=== PATIENT | female | born 1970 | race Caucasian/White ===

== ENCOUNTER 2016-11-30 11:24 | Emergency (ER) | payer MEDICAID, OTHER ==
[~2016-11-30] VITALS: Ht 157.5 cm; Wt 90.0 kg
[2016-11-30 11:35] VITALS: Ht 157.5 cm; Wt 90.0 kg
[2016-11-30 12:25] LABS: URINE BLOOD (Dip) POC 2+ (NEGATIVE)
[2016-11-30 13:13] LABS: BASOPHILS % 0.5 % (0.0-2.0); EOSINOPHILS # 0.1 10^3/ul (0.0-0.5); EOSINOPHILS % 0.6 % (0.0-7.0); HEMATOCRIT 39.4 % (37.0-47.0); HEMOGLOBIN 13.4 g/dl (12.0-16.0); LYMPHOCYTES # 2.1 10^3/ul (0.8-2.9); LYMPHOCYTES % 24.6 % (15.0-51.0); MEAN CORPUSCULAR HEMOGLOBIN 31.2 pg (29.0-33.0); MEAN CORPUSCULAR VOLUME 91.8 fl (82.0-101.0); MONOCYTE # 0.7 10^3/ul (0.3-0.9); NEUTROPHIL # 5.7 10^3/ul (1.6-7.5); NEUTROPHILS % 66.1 % (39.0-77.0); PLATELET COUNT 305 10^3/UL (140-415); RED BLOOD COUNT 4.29 10^6/ul (4.20-5.40); RED CELL DISTRIBUTION WIDTH 12.7 % (11.5-14.5); WHITE BLOOD COUNT 8.7 10^3/ul (4.8-10.8)
[2016-11-30 13:20] LABS: ADD UMIC YES; UR AMORPHOUS CRYSTAL FEW /HPF (NONE SEEN); UR ASCORBIC ACID NEGATIVE (NEGATIVE); UR BILIRUBIN (Dip) NEGATIVE (NEGATIVE); UR BLOOD (Dip) 1+ mg/dL (NEGATIVE); UR CLARITY SLIGHTLY CLOUDY (CLEAR); UR COLOR YELLOW (YELLOW); UR GLUCOSE (Dip) NEGATIVE (NEGATIVE); UR KETONES (Dip) NEGATIVE (NEGATIVE); UR LEUKOCYTE ESTERASE (Dip) NEGATIVE Leu/ul (NEGATIVE); UR MUCUS MANY /HPF (NONE SEEN); UR NITRITE (Dip) NEGATIVE (NEGATIVE); UR RBC 2 /HPF (0-5); UR SPECIFIC GRAVITY (Dip) 1.029 (1.003-1.030); UR SQUAMOUS EPITHELIAL CELL FEW /HPF (FEW); UR TOTAL PROTEIN (Dip) NEGATIVE (NEGATIVE); UR UROBILINOGEN (Dip) NEGATIVE (NEGATIVE)
[2016-11-30 13:28] LABS: INR 1.02; PARTIAL THROMBOPLASTIN TIME 28.4 Sec (25.0-35.0); PROTIME 13.4 Sec (12.2-14.2)
[2016-11-30 13:33] LABS: ALBUMIN 4.6 g/dl (3.3-4.9); ALBUMIN/GLOBULIN RATIO 1.39; BILIRUBIN,INDIRECT 0.2 mg/dl (0-1.1); BILIRUBIN,TOTAL 0.2 mg/dl (0.2-1.3); CALCIUM 9.2 mg/dl (8.4-10.2); CREATININE 0.72 mg/dl (0.44-1.00); TOTAL PROTEIN 7.9 g/dl (6.1-8.1)
--- NOTE | 2016-11-30 13:35 | RADRPT ---
PROCEDURE: US Abdomen. CLINICAL INDICATION: abdominal pain TECHNIQUE: Multiple real-time images were acquired of the patient's right upper quadrant abdomen a nd retroperitoneum utilizing a high resolution transducer. COMPARISON: None FINDINGS: The liver demonstrates increased echogenicity. The liver is normal in size and no focal solid lesio ns are seen. The liver measures 16.2 cm in length. The portal vein is patent with normal direction o f flow. No intrahepatic biliary dilatation is seen. No gallstones are identified within the gallbladder. There is no pericholecystic fluid or gallbladd er wall thickening. The common bile duct measures 4 mm in maximal dimension. The visualized portions of the pancreas are unremarkable. The tail of the pancreas is not seen. No free fluid is identified. The right kidney is normal in size, and demonstrate normal echogenicity and cortical thickness. The right kidney measures 11.6 cm in long dimension. There is no evidence of hydronephrosis. There are no kidney stones. RPTAT: AA IMPRESSION: Diffuse fatty infiltration of the liver. .Nam Marx MD, Date Time Electronically viewed and signed by .Nam Marx MD, MD on 11/30/2016 13:35 .S/
--- NOTE | 2016-11-30 14:14 | RADRPT ---
PROCEDURE: CT Abdomen and Pelvis without contrast. CLINICAL INDICATION: Abdominal pain. TECHNIQUE: CT scan of the abdomen and pelvis without contrast was performed on a multidetector hig h-resolution CT scanner. The patient was scanned without intravenous contrast. Coronal and sagittal reformatted images were obtained from the axial source images. Images were reviewed on a high-resol [employer] PACS workstation. The total exam CTDI equals 20.85 mGy and the total exam DLP equals 1193.82 m Gy-cm. One or the following dose reduction techniques were used: -Automated exposure control. -Adjustment of the mA and/or KV according to patient's size. -Use of iterative reconstruction technique. COMPARISON: None. FINDINGS: Lung Bases: Unremarkable. GI:. Unremarkable. Liver: Liver is upper limit normal in size and demonstrates a decrease in attenuation consistent wit h hepatic steatosis. Gallbladder: Unremarkable. Pancreas: Unremarkable. Spleen: Unremarkablel Adrenals: Unremarkable. Kidneys: There is a nonobstructing 1.0 mm calculus in the lower pole of the left kidney. There is n o evidence of obstructive uropathy and no ureteral lithiasis. Bladder: Unremarkable. Pelvic Organs: There is a 1.7 cm left adnexal cyst, likely an ovarian follicle. Skeleton: Normal for age. Other: N/A IMPRESSION: 1. 1.0 mm nonobstructing lower pole calculus on the left without evidence of urolithiasis or obstruc tive uropathy. 2. Diffuse hepatic steatosis. 3. Normal appearing appendix visualized. 4. 1.7 cm left adnexal cyst, likely a left ovarian follicle. RPTAT: [facility] Physician Liberty Date Time Electronically viewed and signed by Physician Liberty on 11/30/2016 14:14 /
--- NOTE | 2016-11-30 14:16 | ERD ---
ER Documentation Chief Complaint Date/Time DATE: 11/30/16 TIME: 14:13 Chief Complaint UPPER ABDOMINAL PAIN X 4 DAYS HPI This patient is a 46-year-old female presenting to the emergency department with complaints of diffuse abdominal pain ongoing intermittently for the past 3 days. Symptoms are improving mildly. The patient has had similar symptoms in the past. Alleviating factors include ranitidine. Aggravating factors were not reported. The last bowel movement was at 5:30 AM today and was normal for the patient. Associated symptoms include dysuria. She denies history of abdominal surgeries. She denies nausea, vomiting, diarrhea, chest pain, shortness of breath, or other symptoms. ROS All systems reviewed and are negative except as per history of present illness. Medications Home Meds Active Scripts Omeprazole* (Omeprazole*) 20 Mg Capsule.dr, 20 MG PO DAILY, #20 Prov:ROLAND REYES PA-C 11/30/16 Ranitidine Hcl* (Zantac*) 150 Mg Tablet, 150 MG PO BID Y for EPIGASTRIC PAIN, # 30 TAB Prov:ROLAND REYES PA-C 11/30/16 Allergies Allergies: Coded Allergies: No Known Allergy (Unverified , 11/30/16) PMhx/Soc Medical and Surgical Hx: pt denies Medical Hx, pt denies Surgical Hx Hx Alcohol Use: No Hx Substance Use: No Hx Tobacco Use: No Smoking Status: Never smoker Physical Exam Vitals Vital Signs Date Time Temp Pulse Resp B/P Pulse Ox O2 Delivery O2 Flow Rate FiO2 11/30/16 11:35 98.3 70 18 155/81 100 Physical Exam Const: Nontoxic, well-appearing female in no acute distress. Head: Atraumatic Eyes: Normal Conjunctiva ENT: Normal External Ears, Nose and Mouth. Neck: Full range of motion..~ No meningismus. Resp: Clear to auscultation bilaterally Cardio: Regular rate and rhythm, no murmurs Abd: Soft, non tender, non distended. Normal bowel sounds. Mild suprapubic tenderness palpation bilaterally. Skin: No petechiae or rashes Back: No midline or flank tenderness. No CVA tenderness. Ext: No cyanosis, or edema Neur: Awake and alert Psych: Normal Mood and Affect Result Diagram: 11/30/16 1309 11/30/16 1309 Results 24 hrs Laboratory Tests Test 11/30/16 12:31 11/30/16 13:09 Bedside Urine pH (LAB) 5.5 Bedside Urine Protein (LAB) 1+ Bedside Urine Glucose (UA) Negative Bedside Urine Ketones (LAB) Negative Bedside Urine Blood 2+ Bedside Urine Nitrite (LAB) Negative Bedside Urine Leukocyte Esterase (L Negative White Blood Count 8.710^3/ul Red Blood Count 4.2910^6/ul Hemoglobin 13.4g/dl Hematocrit 39.4% Mean Corpuscular Volume 91.8fl Mean Corpuscular Hemoglobin 31.2pg Mean Corpuscular Hemoglobin Concent 34.0g/dl Red Cell Distribution Width 12.7% Platelet Count 67466^3/UL Mean Platelet Volume 10.0fl Neutrophils % 66.1% Lymphocytes % 24.6% Monocytes % 8.0% Eosinophils % 0.6% Basophils % 0.5% Nucleated Red Blood Cells % 0.0/100WBC Neutrophils # 5.710^3/ul Lymphocytes # 2.110^3/ul Monocytes # 0.710^3/ul Eosinophils # 0.110^3/ul Basophils # 0.010^3/ul Nucleated Red Blood Cells # 0.010^3/ul Prothrombin Time 13.4Sec Prothrombin Time Ratio 1.0 INR International Normalized Ratio 1.02 Activated Partial Thromboplast Time 28.4Sec Urine Color YELLOW Urine Clarity SLIGHTLY CLOUDY Urine pH 5.0 Urine Specific [place] 1.029 Urine Ketones NEGATIVEmg/dL Urine Nitrite NEGATIVEmg/dL Urine Bilirubin NEGATIVEmg/dL Urine Urobilinogen NEGATIVEmg/dL Urine Leukocyte Esterase NEGATIVELeu/ul Urine Microscopic RBC 2/HPF Urine Microscopic WBC 2/HPF Urine Squamous Epithelial Cells FEW/HPF Urine Amorphous Crystals FEW/HPF Urine Mucus MANY/HPF Urine Hemoglobin 1+mg/dL Urine Glucose NEGATIVEmg/dL Urine Total Protein NEGATIVEmg/dl Sodium Level 145mmol/L Potassium Level 4.0mmol/L Chloride Level 103mmol/L Carbon Dioxide Level 27mmol/L Anion Gap 19 Blood Urea Nitrogen 8mg/dl Creatinine 0.72mg/dl Glucose Level 100mg/dl Calcium Level 9.2mg/dl Total Bilirubin 0.2mg/dl Direct Bilirubin 0.00mg/dl Indirect Bilirubin 0.2mg/dl Aspartate Amino Transf (AST/SGOT) 30IU/L Alanine Aminotransferase (ALT/SGPT) 45IU/L Alkaline Phosphatase 59IU/L Total Protein 7.9g/dl Albumin 4.6g/dl Globulin 3.30g/dl Albumin/Globulin Ratio 1.39 Lipase 58U/L [place] [id number] Radiology Main Line: [phone] DIAGNOSTIC IMAGING REPORT Patient: MONICA BEASLEY : 1970 Age: 46 Sex: F MR #: [id number] DOS: 11/30/16 1255 Ordering MD: ROLAND REYES PA-C Location: [facility] Room/Bed: PROCEDURE: CT Abdomen and Pelvis without contrast. CLINICAL INDICATION: Abdominal pain. TECHNIQUE: CT scan of the abdomen and pelvis without contrast was performed on a multidetector high-resolution CT scanner. The patient was scanned without intravenous contrast. Coronal and sagittal reformatted images were obtained from the axial source images. Images were reviewed on a high-resolution PACS workstation. The total exam CTDI equals 20.85 mGy and the total exam DLP equals 1193.82 mGy-cm. One or the following dose reduction techniques were used: -Automated exposure control. -Adjustment of the mA and/or KV according to patient's size. -Use of iterative reconstruction technique. COMPARISON: None. FINDINGS: Lung Bases: Unremarkable. GI:. Unremarkable. Liver: Liver is upper limit normal in size and demonstrates a decrease in attenuation consistent with hepatic steatosis. Gallbladder: Unremarkable. Pancreas: Unremarkable. Spleen: Unremarkablel Adrenals: Unremarkable. Kidneys: There is a nonobstructing 1.0 mm calculus in the lower pole of the left kidney. There is no evidence of obstructive uropathy and no ureteral lithiasis. Bladder: Unremarkable. Pelvic Organs: There is a 1.7 cm left adnexal cyst, likely an ovarian follicle. Skeleton: Normal for age. Other: N/A IMPRESSION: 1. 1.0 mm nonobstructing lower pole calculus on the left without evidence of urolithiasis or obstructive uropathy. 2. Diffuse hepatic steatosis. 3. Normal appearing appendix visualized. 4. 1.7 cm left adnexal cyst, likely a left ovarian follicle. RPTAT: AACC Physician Liberty Date Time Electronically viewed and signed by Physician Liberty on 11/30/2016 14: 14 JH/ CC: ROLAND REYES PA-C PROCEDURE: US Abdomen. CLINICAL INDICATION: abdominal pain TECHNIQUE: Multiple real-time images were acquired of the patient's right upper quadrant abdomen and retroperitoneum utilizing a high resolution transducer. COMPARISON: None FINDINGS: The liver demonstrates increased echogenicity. The liver is normal in size and no focal solid lesions are seen. The liver measures 16.2 cm in length. The portal vein is patent with normal direction of flow. No intrahepatic biliary dilatation is seen. No gallstones are identified within the gallbladder. There is no pericholecystic fluid or gallbladder wall thickening. The common bile duct measures 4 mm in maximal dimension. The visualized portions of the pancreas are unremarkable. The tail of the pancreas is not seen. No free fluid is identified. The right kidney is normal in size, and demonstrate normal echogenicity and cortical thickness. The right kidney measures 11.6 cm in long dimension. There is no evidence of hydronephrosis. There are no kidney stones. RPTAT: AA IMPRESSION: Diffuse fatty infiltration of the liver. Procedures/MDM EMERGENCY DEPARTMENT COURSE / MEDICAL DECISION MAKING: This is a 46-year-old female who comes to the emergency room secondary to complaints of diffuse abdominal pain. Pain was mild and the patient did not require pain medication in the department. The patient remained stable throughout her ED course. Lab results reviewed. CBC: Within normal limits Chemistry: Within normal limits UA: Negative for infection. Lipase: Within normal limits Radiology: CT abdomen and pelvis without contrast impression: 1. 1.0 mm nonobstructing lower pole calculus on the left without evidence of urolithiasis or obstructive uropathy. 2. Diffuse hepatic steatosis. 3. Normal appearing appendix visualized. 4. 1.7 cm left adnexal cyst, likely a left ovarian follicle. Gallbladder ultrasound showed fatty infiltration of the liver but no other acute findings. The primary diagnosis is epigastric pain of unclear etiology. Secondary diagnosis is kidney stone I have low suspicion for acute abdomen, sepsis, or other emergent conditions at this time. Discharge: I have discussed the lab results and diagnostic findings with the patient and answered any questions or concerns. The patient was discharged with a prescription for omeprazole and ranitidine. The patient was advised to followup with their PMD in 1-2 days and to return to the Emergency Department if there are any new or worsening symptoms. The patient understood and agreed with the diagnosis, treatment and plan. The patient is stable for discharge at this time. Departure Diagnosis: Primary Impression: Epigastric pain Additional Impression: Kidney stone Condition: ROLAND Corea PA-C Nov 30, 2016 14:16
[2016-11-30] MEDS ORDERED: RANI150T9 PO (14:20)
[2016-11-30] MEDS ORDERED: OMEP20CA16 PO (14:20)
[2016-11-30 15:20] VITALS: BP 142/60; PULSE 68; RESP 18; TEMP 97.3
[2016-12-05 16:12] LABS: URINE BLOOD (Dip) POC 2+ (NEGATIVE)
== END 2016-11-30 15:20 | disposition home or self-care (01) ==
LOC: FTE 11:24
DX: R10.13 Epigastric pain (principal); N20.0 Calculus of kidney
CPT/HCPCS: 36415; 74176; 76705; 80053; 81001; 81003; 83690; 85025; 85610; 85730; Z7502

== ENCOUNTER 2018-07-26 13:47 | Emergency (ER) | payer MEDICAID ==
[~2018-07-26] VITALS: Ht 162.6 cm; Wt 86.3 kg
[~2018-07-26 13:47] MED LIST: OMEP20CA16 PO; RANI150T35 PO
[2018-07-26 14:59] VITALS: Ht 162.6 cm; Wt 86.3 kg
--- NOTE | 2018-07-26 16:39 | ERD ---
ER Documentation Chief Complaint Chief Complaint FLANK AND AP X 2 WEEKS, MALODOROUS URINE HPI 47-year-old female, presents the emergency department, complaining of flank and abdominal pain for 2 weeks, associated with increased urinary frequency and a strong urine smell. She denies fevers, no chills, no nausea or vomiting. No diarrhea or constipation, no vaginal bleeding, no medications taken at this time. Currently, the pain is 0/10, therefore, the patient refused medications in the emergency department. ROS All systems reviewed and are negative except as per history of present illness. Medications Home Meds Active Scripts Acetaminophen* (Tylenol*) 325 Mg Tablet, 2 TAB PO Q8 PRN for PAIN AND OR ELEVATED TEMP, #20 TAB Prov:ELINA KLEIN MD 07/26/18 Ranitidine Hcl* (Zantac*) 150 Mg Tablet, 150 MG PO BID PRN for EPIGASTRIC PAIN, #10 TAB Prov:ELINA KLEIN MD 07/26/18 Ciprofloxacin Hcl* (Ciprofloxacin Hcl*) 250 Mg Tablet, 250 MG PO BID, #10 TAB Prov:ELINA KLEIN MD 07/26/18 Omeprazole* (Omeprazole*) 20 Mg Capsule.dr, 20 MG PO DAILY, #20 Prov:ROLAND REYES PA-C 11/30/16 Ranitidine Hcl* (Zantac*) 150 Mg Tablet, 150 MG PO BID PRN for EPIGASTRIC PAIN, #30 TAB Prov:ROLAND REYES PA-C 11/30/16 Allergies Allergies: Coded Allergies: No Known Allergy (Unverified , 11/30/16) PMhx/Soc Hx Alcohol Use: No Hx Substance Use: No Hx Tobacco Use: No FmHx Family History: No diabetes, No coronary disease Physical Exam Vitals Vital Signs Date Temp Pulse Resp B/P (MAP) Pulse Ox O2 O2 Flow FiO2 Time Delivery Rate 07/26/18 97.8 73 16 159/75 100 14:59 (103) Physical Exam Const: No acute distress Head: Atraumatic Eyes: Normal Conjunctiva ENT: Normal External Ears, Nose and Mouth. Neck: Full range of motion. No meningismus. Resp: Clear to auscultation bilaterally Cardio: Regular rate and rhythm, no murmurs Abd: Soft, non tender, non distended. Normal bowel sounds Skin: No petechiae or rashes Back: No midline or flank tenderness Ext: No cyanosis, or edema Neur: Awake and alert Psych: Normal Mood and Affect Result Diagram: 07/26/180 07/26/18 171 Results 24 hrs Laboratory Tests Test 07/26/18 17:10 07/26/18 17:24 07/26/18 17:26 White Blood Count 12.1 10^3/ul Red Blood Count 4.67 10^6/ul Hemoglobin 14.0 g/dl Hematocrit 42.7 % Mean Corpuscular Volume 91.4 fl Mean Corpuscular Hemoglobin 30.0 pg Mean Corpuscular 32.8 g/dl Hemoglobin Concent Red Cell Distribution Width 12.6 % Platelet Count 337 10^3/UL Mean Platelet Volume 10.2 fl Immature Granulocytes % 0.400 % Neutrophils % 68.6 % Lymphocytes % 23.5 % Monocytes % 6.5 % Eosinophils % 0.3 % Basophils % 0.7 % Nucleated Red Blood Cells % 0.0 /100WBC Immature Granulocytes # 0.050 10^3/ul Neutrophils # 8.3 10^3/ul Lymphocytes # 2.8 10^3/ul Monocytes # 0.8 10^3/ul Eosinophils # 0.0 10^3/ul Basophils # 0.1 10^3/ul Nucleated Red Blood Cells # 0.0 10^3/ul Sodium Level 144 mmol/L Potassium Level 4.3 mmol/L Chloride Level 101 mmol/L Carbon Dioxide Level 30 mmol/L Anion Gap 13 Blood Urea Nitrogen 14 mg/dl Creatinine 0.65 mg/dl Est Glomerular Filtrat Rate mL/min > 60 mL/min Glucose Level 125 mg/dl Calcium Level 10.0 mg/dl Total Bilirubin 0.3 mg/dl Direct Bilirubin 0.00 mg/dl Indirect Bilirubin 0.3 mg/dl Aspartate Amino Transf (AST/SGOT) 27 IU/L Alanine 29 IU/L Aminotransferase (ALT/SGPT) Alkaline Phosphatase 72 IU/L Total Protein 8.5 g/dl Albumin 4.9 g/dl Globulin 3.60 g/dl Albumin/Globulin Ratio 1.36 Lipase 89 U/L Bedside Urine pH (LAB) 6.0 Bedside Urine Protein (LAB) Negative Bedside Urine Glucose (UA) Negative Bedside Urine Ketones (LAB) Negative Bedside Urine Blood Trace-lysed Bedside Urine Nitrite (LAB) Negative Bedside Urine Leukocyte Esterase Negative (L POC Beta HCG, Qualitative NEGATIVE Procedures/MDM Vital signs stable. Differential diagnosis include but not limited to: UTI, colitis, gastroenteritis, kidney stones, irritable bowel syndrome, inflammatory bowel syndrome, malabsorption syndrome, cholelithiasis, food intolerance, medication side effect, pancreatitis, diverticulitis, bowel obstruction. Physical examination and clinical presentation consistent most likely with acute cystitis, low suspicion for acute abdomen. During the ED course the patient remained stable, no new complaints. Results and clinical impression discussed with the patient who agrees with management. The patient is stable to be treated outpatient and will be discharged home; some side effects of prescribed medications (headache, rash, nausea, vomiting, diarrhea, drowsiness, habituation, bleeding, hypertension, interactions with other medications) were reviewed. Follow up with the primary care provider in the next 48h is recommended. If symptoms persist, worsen or new symptoms develop, then patient should return to the ED immediately. Instructions explained and given directly by me to the patient with acknowledgment and demonstrated understanding. Disclaimer: Inadvertent spelling and grammatical errors are likely due to EHR/dictation software use and do not reflect on the overall quality of patient care. Also, please note that the electronic time recorded on this note does not necessarily reflect the actual time of the patient encounter. Departure Diagnosis: Primary Impression: Acute cystitis Condition: Stable Additional Instructions: Muchas vernon por [facility] para morfin servicio. Esperamos que en morfin visita a la gaurang de emergencia morfin problema medico haya sido solucionado y que se sienta mucho mejor. Para estar seguros que morfin mejoria sigue en proceso, le pedimos el favor de hacer darcy stoney de seguimiento medico con morfin doctor primario en los proximos 2-4 francisco. Lleve con usted estos documentos y las medicinas recetadas. Si conrado sintomas empeoran, NO SE ESPERE, por favor regrese a gaurang de emergencia INMEDIATAMENTE. En wang que usted no tenga un mdico de atencin primaria: Llame al mdico o clnica comunitaria de referencia que aparece abajo lupillo las horas de consultorio para hacer darcy stoney para que le vean. CLINICAS: [facility] [phone] [id number] [facility] [phone] [id number] [facility] [phone] [address] [facility] [phone] [place] [id number] [phone] [facility]. [phone] ELINA SOMMER MD Jul 26, 2018 16:39
[2018-07-26] MEDS ORDERED: RANI150T35 PO (18:12)
[2018-07-26] MEDS ORDERED: CIPR-193 PO (18:12)
[2018-07-26] MEDS ORDERED: ACET325T33 PO (18:12)
[2018-07-26 18:35] VITALS: BP 127/94; PULSE 66; RESP 18
== END 2018-07-26 18:36 | disposition home or self-care (01) ==
LOC: FTE 13:47
DX: N30.00 Acute cystitis without hematuria (principal)
CPT/HCPCS: 80053; 81003; 81025; 83690; 85025; Z7502; 99283